=== PATIENT | female | born 1980 | race Caucasian/White ===

== ENCOUNTER 2016-02-21 03:25 | Emergency (ER) | payer MEDICAID ==
[2016-02-21] MEDS ORDERED: LIDOCAINE 2% VISC 15 ML UDC ONE (03:51)
[2016-02-21] MEDS ORDERED: ONDANSETRON ODT 4 MG TAB ONE (03:51)
[2016-02-21] MEDS ORDERED: ALU/MAG/SIM 30 ML UDC ONE (03:51)
== END 2016-02-21 05:26 | disposition home or self-care (01) ==
LOC: ER 03:25
CPT/HCPCS: 36415; 74022; 80053; 81003; 83690; 84703; 85025; 86677